=== PATIENT | female | born 1995 | race Caucasian/White ===

== ENCOUNTER → 2020-01-17 13:36 | Outpatient (BNVA) | payer MEDICAID, SELFPAY | PROVIDERS: Visit Provider Obstetrics & Gynecology | DX: Z76.89 Persons encountering health services in other specified circumstances (principal) ==

== ENCOUNTER 2020-02-09 09:57 | Outpatient (REF) | payer MEDICAID, SELFPAY ==
[2020-02-09 13:53] LABS: Hematocrit 29.5 % (37-47); Hemoglobin 9.1 g/dl (12.0-16.0); Mean Corpuscular HGB Conc 30.8 g/dl (31.0-35.0); Mean Corpuscular Hemoglobin 24.5 pg (27.0-33.0); Mean Corpuscular Volume 79.3 fL (80-98); Mean Platelet Volume 9.5 fL (9.4-12.3); Platelet Count 330 X10*3/uL (160-400); Red Blood Count 3.72 X10*6/uL (4.20-5.50); Red Cell Distribution Width 14.7 % (11.0-16.0); White Blood Count 8.5 X10*3/uL (4.8-10.8)
[2020-02-09 14:15] LABS: Glucose 1 Hour PP 50gm Dose 94 mg/dL (60-140)
[2020-02-09 14:48] LABS: Syphilis Screen Nonreactive (Nonreactive)
[2020-02-12 08:40] LABS: HIV AB/AG Nonreactive (Nonreactive); HIV Num 1 0.11 S/CO (0.00-0.99)
== END 2020-02-09 09:58 | disposition home or self-care (01) ==
LOC: HO.LAB 09:57
PROVIDERS: Visit Provider Advanced Practice Midwife
DX: O99.013 Anemia complicating pregnancy, third trimester (principal); O36.63X0 Maternal care for excessive fetal growth, third trimester, not applicable or unspecified; O99.213 Obesity complicating pregnancy, third trimester; O34.219 Maternal care for unspecified type scar from previous cesarean delivery; O28.3 Abnormal ultrasonic finding on antenatal screening of mother
CPT/HCPCS: 36415; 82951; 85027; 86780; 87086; 87389; 90686; 90715

== ENCOUNTER → 2020-02-20 13:35 | Outpatient (BNVA) | payer MEDICAID, SELFPAY | PROVIDERS: Visit Provider Obstetrics & Gynecology | DX: Z76.89 Persons encountering health services in other specified circumstances (principal) ==

== ENCOUNTER → 2020-03-05 14:28 | Outpatient (BNVA) | payer MEDICAID, SELFPAY | PROVIDERS: Visit Provider Advanced Practice Midwife | DX: Z76.89 Persons encountering health services in other specified circumstances (principal) ==

== ENCOUNTER 2020-03-11 14:51 | Outpatient (REF) | payer MEDICAID, SELFPAY | END 2020-03-11 14:52 | disposition home or self-care (01) | LOC: HO.LAB 14:51 | PROVIDERS: Visit Provider Internal Medicine | DX: Z20.828 Contact with and (suspected) exposure to other viral communicable diseases (principal) | CPT/HCPCS: C9803; U0003 ==

== ENCOUNTER 2020-03-15 12:33 | Outpatient (REF) | payer MEDICAID, SELFPAY ==
--- NOTE | 2020-03-15 12:42 | US_ITS ---
EXAMINATION: OBSTETRICAL ULTRASOUND, Follow up HISTORY: 24-year-old at the 34.6 weeks of gestation High BMI Increased nuchal translucency first trimester Size date discrepancy COMPARISON: 11/24/2019 TECHNIQUE: Real time transabdominal imaging with color and M-mode Doppler. PRESENTATION: Vertex PLACENTA LOCATION: Posterior without previa AMNIOTIC FLUID: Normal MEASUREMENTS: 1. Biparietal Diameter: 8.8 cm; 35.4 wks 2. Head Circumference: 32.2 cm; 36.3 wks 3. Abdominal Circumference: 30.9 cm; 34.6 wks 4. Femur Length: 6.3 cm; 32.6 wks 5. Heart Rate: 146 beats per minute WEIGHT: EFW: 2444 grams (5 lbs 6 oz) -- 36 %. BIOPHYSICAL PROFILE: Motion: 2 Tone: 2 Breathin Amniotic Fluid: 2 Total score: 8/8 GESTATIONAL AGE: 1. Established GA: 34.6 wks 2. GA from A: 35.0 wks ESTIMATED DATE OF DELIVERY: 1. Established ASA: 04/20/2020 2. ASA from AUA: 04/19/2020 US/US OB follow up IMPRESSION: 1. A single active fetus is in vertex presentation 2. Size equals dates 3. Reassuring biophysical profile I reviewed today's findings and gave her reassurance. The NT was 4 mm at the 12.5 weeks. She had low risk N IPT and normal echo. She reports having had the normal 1 hour GLT. No further ultrasound has been scheduled today. Thank you very much for this referral. Visiting time 25 minutes. Majority of this visit was spent reviewing and coordinating her care.
== END 2020-03-15 12:34 | disposition home or self-care (01) ==
LOC: HO.US 12:33
PROVIDERS: Visit Provider Obstetrics & Gynecology
DX: O28.3 Abnormal ultrasonic finding on antenatal screening of mother (principal)
CPT/HCPCS: 76816

== ENCOUNTER → 2020-03-19 13:02 | Outpatient (BNVA) | payer MEDICAID, SELFPAY | PROVIDERS: Visit Provider Advanced Practice Midwife | DX: O28.3 Abnormal ultrasonic finding on antenatal screening of mother (principal) | CPT/HCPCS: 81003 ==

== ENCOUNTER 2020-03-26 14:06 | Outpatient (REF) | payer MEDICAID, SELFPAY ==
[2020-03-29 04:47] LABS: C. trachomatis RNA TMA NOT DETECTED (NOT DETECTED); N. gonorrhoeae RNA TMA NOT DETECTED (NOT DETECTED)
== END 2020-03-26 14:07 | disposition home or self-care (01) ==
LOC: HO.LAB 14:06
PROVIDERS: Visit Provider Advanced Practice Midwife
DX: Z34.83 Encounter for supervision of other normal pregnancy, third trimester (principal); R06.02 Shortness of breath
CPT/HCPCS: 81003; 87081; 87491; 87591; 99212

== ENCOUNTER → 2020-04-03 13:13 | Outpatient (BNVA) | payer MEDICAID, SELFPAY | PROVIDERS: Visit Provider Advanced Practice Midwife | DX: Z34.83 Encounter for supervision of other normal pregnancy, third trimester (principal) | CPT/HCPCS: 81003; 99212 ==

== ENCOUNTER → 2020-04-10 15:39 | Outpatient (BNVA) | payer MEDICAID, SELFPAY | PROVIDERS: Visit Provider Advanced Practice Midwife | DX: Z34.83 Encounter for supervision of other normal pregnancy, third trimester (principal) | CPT/HCPCS: 81003; 99212 ==

== ENCOUNTER → 2020-04-29 14:14 | Outpatient (BNVA) | payer MEDICAID, SELFPAY | PROVIDERS: Visit Provider Advanced Practice Midwife | DX: Z39.2 Encounter for routine postpartum follow-up (principal) | CPT/HCPCS: 99212 ==

== ENCOUNTER → 2021-05-08 10:41 | Outpatient (BNVA) | payer MEDICAID, SELFPAY | PROVIDERS: Visit Provider Advanced Practice Midwife | DX: Z32.01 Encounter for pregnancy test, result positive (principal); O99.210 Obesity complicating pregnancy, unspecified trimester; E66.9 Obesity, unspecified; O34.219 Maternal care for unspecified type scar from previous cesarean delivery | CPT/HCPCS: 81025; 99212 ==

== ENCOUNTER 2021-05-23 11:33 | Outpatient (REF) | payer MEDICAID, SELFPAY ==
--- NOTE | ~2021-05-23 | US_ITS ---
EXAMINATION: OBSTETRICAL ULTRASOUND, FIRST TRIMESTER HISTORY: 25-year-old with uncertain LMP COMPARISON: None TECHNIQUE: Real time transabdominal imaging with color and M-mode Doppler. FINDINGS: A single, live IUP CRL of 23.4 mm c/w 9.1wks is noted. Heart Rate: 169 beats per minute. Both maternal ovaries are seen and appear normal. GESTATIONAL AGE: 1. GA from LMP: 9.4 wks 2. GA from AUA: 9.1 wks ESTIMATED DATE OF DELIVERY: 1. ASA from LMP: 12/22/2021 2. ASA from AUA: 12/25/2021 US/US OB <= 14 weeks fetus IMPRESSION: 1. A single live IUP 2. Size equals dates 3. Normal ovaries This note was generated with a voice recognition program. Please excuse any errors which may have been overlooked during my review of this note. Sometimes these errors may affect the content or meaning of a given sentence.
== END 2021-05-23 11:34 | disposition home or self-care (01) ==
LOC: HO.US 11:33
PROVIDERS: Visit Provider Advanced Practice Midwife
DX: O99.211 Obesity complicating pregnancy, first trimester (principal); E66.9 Obesity, unspecified; O34.219 Maternal care for unspecified type scar from previous cesarean delivery; Z3A.09 9 weeks gestation of pregnancy
CPT/HCPCS: 76801

== ENCOUNTER 2021-06-05 13:56 | Outpatient (REF) | payer MEDICAID, SELFPAY ==
[2021-06-05 16:33] LABS: Hematocrit 33.2 % (37.0-47.0); Hemoglobin 10.2 g/dl (12.0-16.0); Mean Corpuscular HGB Conc 30.7 g/dl (31.0-35.0); Mean Corpuscular Hemoglobin 23.8 pg (27.0-33.0); Mean Corpuscular Volume 77.4 fL (80.0-98.0); Mean Platelet Volume 9.6 fL (9.4-12.3); Platelet Count 409 X10*3/uL (160-400); Red Blood Count 4.29 X10*6/uL (4.20-5.50); Red Cell Distribution Width 17.9 % (11.0-16.0)
[2021-06-05 16:56] LABS: Amphetamine Screen Urine Not Detected (Not Detect); Barbiturates, Urine Not Detected (Not Detect); Benzodiazepines Screen Urine Not Detected (Not Detect); Cannabinoid Screen Urine Not Detected (Not Detect); Cocaine Screen Urine Not Detected (Not Detect); Fentanyl, urine Not Detected (Not Detect); Opiate Screen Urine Not Detected (Not Detect); Phencyclidine Screen Urine Not Detected (Not Detect)
[2021-06-06 07:46] LABS: ~HepC Num1 0.16 S/CO (0.00-0.79); ~Hepatitis C Antibody Nonreactive (Nonreactive)
[2021-06-06 07:53] LABS: HBsAGNum1 0.22 S/CO (0.00-0.99); HIV AB/AG Nonreactive (Nonreactive); HIV Num 1 0.04 S/CO (0.00-0.99); Hepatitis B Surface Antigen Negative (Negative)
[2021-06-06 08:45] LABS: Syphilis Screen Nonreactive (Nonreactive)
[2021-06-06 19:16] LABS: Rubella IgG Antibody 1.41 Index
== END 2021-06-05 13:57 | disposition home or self-care (01) ==
LOC: HO.LAB 13:56
PROVIDERS: PCP Nurse Practitioner Family; Visit Provider Advanced Practice Midwife
DX: Z34.91 Encounter for supervision of normal pregnancy, unspecified, first trimester (principal); Z3A.11 11 weeks gestation of pregnancy
CPT/HCPCS: 80307; 85027; 86762; 86780; 86787; 86803; 86850; 86900; 86901; 87086; 87340; 87389; 99212

== ENCOUNTER 2021-06-11 09:28 | Outpatient (REF) | payer MEDICAID, SELFPAY ==
[2021-06-11 10:36] LABS: Glucose 1 Hour PP 50gm Dose 86 mg/dL (60-140)
[2021-06-11 16:34] LABS: CT PCR NOT DETECTED (Not Detect.); NG PCR NOT DETECTED (Not Detect.)
[2021-06-12 11:04] LABS: BV Int Neg Control Negative (Negative); BV Int Pos Control Positive (Positive)
== END 2021-06-11 09:29 | disposition home or self-care (01) ==
LOC: HO.LAB 09:28
PROVIDERS: Visit Provider Advanced Practice Midwife
DX: O99.211 Obesity complicating pregnancy, first trimester (principal); E66.9 Obesity, unspecified; O34.211 Maternal care for low transverse scar from previous cesarean delivery; Z3A.11 11 weeks gestation of pregnancy
CPT/HCPCS: 36415; 87480; 87491; 87510; 87591; 87660; 99212

== ENCOUNTER 2021-06-20 12:22 | Outpatient (REF) | payer MEDICAID, SELFPAY ==
--- NOTE | ~2021-06-20 | US_ITS ---
EXAMINATION: OBSTETRICAL ULTRASOUND, FIRST TRIMESTER HISTORY: 25-year-old at 13.4 weeks of gestation High BMI NT screening COMPARISON: 05/23/2021 TECHNIQUE: Real time transabdominal imaging with color and M-mode Doppler. FINDINGS: A single, live IUP CRL of 65.9 mm c/w 13.0wks is noted. Heart Rate: 147 beats per minute. Normal yolk sac seen. NT was 1.6.mm. NB Present The embryo appears sonographically wnl for this GA. Both maternal ovaries are seen and appear normal. GESTATIONAL AGE: 1. Established GA: 13.4 wks 2. GA from AUA: 13.0 wks ESTIMATED DATE OF DELIVERY: 1. Established ASA: 12/22/2021 2. ASA from AUA: 12/26/2021 US/US OB 1T nuc measure IMPRESSION: 1. A single live IUP 2. Size equals dates 3. NT of 1.6 mm MFM Consultation: I reviewed the ultrasound findings along with significance of NT measurement. The NT of less than 3mm is generally reassuring. However, the sensitivity for T21 detection is only 60%. I reviewed the availability of serum aneuploidy screening which includes cell-free DNA and placental protein based tests. I discussed the sensitivity, false-positive rate, and other limitations associated with each test. I also reviewed the availability of invasive diagnostic tests that are associated small but definite risk of miscarriage. We also reviewed the differences between screening tests and diagnostic tests. After our discussion, she opted for the First trimester screening that is based on cell-free DNA or non-invasive testing (NIPT). The result will be faxed to your office in approximately 7 days. A follow up at 18 weeks for survey has been scheduled. Thank you very much for this referral. Total time 30 minutes. The time spent was devoted to counseling the patient about the disease and diagnosis, coordinating care including reviewing her records, pertinent lab data and studies, as well as discussing diagnostic evaluation and workup, plan therapeutic interventions and future disposition of care. This includes any additional research needed to obtain further information in formulating the plan of care of this patient. This note was generated with a voice recognition program. Please excuse any errors which may have been overlooked during my review of this note. Sometimes these errors may affect the content or meaning of a given sentence.
== END 2021-06-20 12:23 | disposition home or self-care (01) ==
LOC: HO.US 12:22
PROVIDERS: PCP Nurse Practitioner Family; Visit Provider Advanced Practice Midwife
DX: Z34.91 Encounter for supervision of normal pregnancy, unspecified, first trimester (principal)
CPT/HCPCS: 76813

== ENCOUNTER 2021-07-09 13:18 | Outpatient (REF) | payer MEDICAID, SELFPAY | END 2021-07-09 13:19 | disposition home or self-care (01) | LOC: HO.LAB 13:18 | PROVIDERS: PCP Nurse Practitioner Family; Visit Provider Advanced Practice Midwife | DX: O34.219 Maternal care for unspecified type scar from previous cesarean delivery (principal); O99.012 Anemia complicating pregnancy, second trimester; D64.9 Anemia, unspecified; O99.212 Obesity complicating pregnancy, second trimester; O09.892 Supervision of other high risk pregnancies, second trimester; Z3A.15 15 weeks gestation of pregnancy | CPT/HCPCS: 87086; 99212 ==

== ENCOUNTER 2021-07-25 16:07 | Emergency (ER) | payer MEDICAID, SELFPAY ==
[2021-07-25 16:40] VITALS: BP 124/59; PULSE 110; RESP 19; TEMP 36.5; BMI 34.7
[2021-07-25 18:33] VITALS: BP 115/72; PULSE 103; RESP 17; O2SAT 99
--- NOTE | 2021-07-25 18:42 | ED.DENTAL ---
HPI - Dental/Oral General Chief complaint: Dental/Oral Stated complaint: Dental pain Time Seen by Provider: 07/25/21 18:09 Source: patient Mode of arrival: ambulatory History of Present Illness HPI Narrative: 25-year-old female at 4 months gestation presenting to the ED complaining of upper and lower gum pain x3 days. Denies injury, trauma, bleeding, oral swelling, difficulty swallowing/inability to swallow, fever, chills. Denies related complaints including abdominal pain, hematuria, vaginal bleeding, vaginal discharge Onset (ago): day(s) Related Data Home Medications Medication Instructions Recorded Confirmed prenat.vits,luisa,[id number] 1 tab PO DAILY 01/17/20 07/09/21 Previous Rx's Medication Instructions Recorded doxylamine succinate 25 mg tablet 25 mg PO BEDTIME 30 Days #30 tab 06/05/21 (Unisom (doxylamine)) ferrous sulfate 325 mg (65 mg 325 mg PO BID #60 tab 06/05/21 iron) tablet pyridoxine (vitamin B6) 25 mg 25 mg PO tid PRN 30 Days #90 tab 06/05/21 tablet (Vitamin B-6) aspirin 81 mg tablet,delayed 162 mg PO DAILY #300 tab 06/11/21 release (Adult Aspirin Regimen) metronidazole 500 mg tablet 500 mg PO BID 7 Days #14 tab 07/04/21 Allergies Allergy/AdvReac Type Severity Reaction Status Date / Time No Known Allergies Allergy Verified 07/25/21 16:42 Review of Systems Review of Systems: Constitutional: No Fever, No Chills ENT/Mouth: No Ear Pain, No Nasal Congestion, No Sinus Pain, No Hoarseness, No sore throat, No Rhinorrhea, No Swallowing Difficulty, +gum pain Cardiovascular: No Chest Pain, No SOB Respiratory: No Cough, No Sputum, No Wheezing Gastrointestinal: No Nausea, No Vomiting, No Diarrhea, No Constipation, No Abdominal pain Genitourinary:No Dysuria, No Urinary Frequency, No Hematuria, No Flank Pain, no vaginal bleeding, no vaginal discharge Musculoskeletal: No joint pain, No Myalgias, No Joint Swelling Skin: No Skin Lesions, No rash Neuro: No Weakness, No Numbness, No Paresthesias Yes all other systems are reviewed and are negative PMFSH Past Medical History Attestation statement: The following information was validated with the patient. Surgical History History of Family History Family History Maternal Grandmother Cancer Social History Social History Household Members: Family and Children Housing: Apartment Are you a primary reservoir caretaker to a significant other at home: No Do you presently have visiting nurse or other home services: No Alcohol intake: never Patient Tobacco Use Status: Never used Tobacco Agree to transfusion: Yes Advance Directives: No Advance Directives Information Provided: No service: No Current occupational status: unemployed Current occupational exposures/hazards: No Sexual orientation: Straight/Heterosexual Gender identity: Female Cognitive needs: No Hearing needs: No Vision needs: No Physical Exam Vital Signs: Vital Signs: Last Vital Signs Temp 97.7 F 07/25/21 16:40 Pulse 103 H 07/25/21 18:33 Resp 17 07/25/21 18:33 BP 115/72 07/25/21 18:33 Pulse Ox 99 07/25/21 18:33 BMI result Body Mass Index 34.7 Const: General: cooperative, healthy appearing, no acute distress, alert, awake and Physically active Orientation/consciousness: patient oriented x3 Limitations: no limitations HEENT: Other: + mild tenderness to gums of the central and lateral incisors on the top and bottom. No erythema, no lesions, no swelling. Talking in complete sentences, in no respiratory distress. No dental tenderness, infection, fluctuance or induration Head: Yes normal to inspection and Yes atraumatic Ears: hearing grossly normal bilaterally General nose exam: Normal external nose present Face and sinus: Yes normal facial exam Mouth: Normal oral and palatal mucosa present, no drooling, no muffled voice and No restricted motion Teeth and gingiva: dentition normal Throat: Yes posterior oropharynx normal, Yes tonsils normal, Yes uvula midline, No peritonsillar mass, No uvula laterally displaced and No uvular edema Eyes: General: appearance normal, both eyes and all related structures EOM: EOMs intact bilaterally Neck: Neck: Yes normal visual inspection, Yes no meningeal signs and Yes supple Resp: Effort & Inspection: normal respiratory effort, no respiratory distress and no stridor Auscultation: clear to auscultation bilaterally Cardio: Rate: regular rate Heart sounds: S1 normal heart sound present and S2 normal heart sound present Skin: Rashes: no rashes Wounds: no wounds Neuro: General: patient oriented x3, tone normal and no meningeal signs Gait exam (Neuro): Normal gait present Extrem: General: Yes normal to inspection MDM - Dental/Oral MDM Narrative Medical decision making narrative: 25-year-old female at 4 months gestation presenting to the ED complaining of upper and lower gum pain x3 days. On exam mildly tachycardic likely from pain, NAD/nontoxic appearing, no evidence of dental abscess/infection. Patient denies related complaints. Recommended Tylenol and dentistry follow-up Differential Diagnosis Differential diagnosis: Likely dental caries, toothache and aphthous ulcer Medical Records Attestation: I reviewed the patient's medical records. Lab Data Attestation: I reviewed the patient's lab results. Discharge Plan Discharge Clinical Impression: Gingivitis Patient Disposition: Home, Self-Care Instructions: Gingivitis (ED) Additional Instructions: Please follow-up with your dentist. Take Tylenol for pain. Practice warm saltwater soaks and eat cold things for pain relief If symptoms persist or worsen, area begins to look infected, is red, there swelling or drainage, you see any bumps or lesions please return to the ED Por favor, kavin un seguimiento con tanner dentista. Shelli Tylenol para el dolor. Practique ba?os de agua salada tibia y coma cosas fr?as para aliviar el dolor Si los s?ntomas persisten o empeoran, el ?saundra comienza a lucir infectada, est? enrojecida, hay hinchaz?n o drenaje, ve alg?n bulto o lesi?n, regrese al servicio de urgencias. Prescriptions: No Action ferrous sulfate 325 mg (65 mg iron) tablet 325 mg PO BID Qty: 60 3RF metronidazole 500 mg tablet 500 mg PO BID 7 Days Qty: 14 0RF prenat.vits,luisa,[id number] Tablet 1 tab PO DAILY 0RF pyridoxine (vitamin B6) [Vitamin B-6] 25 mg tablet 25 mg PO tid PRN (Reason: nausea) 30 Days Qty: 90 3RF Rx Instructions: may take every 6 - 8 hours for nausea Unisom (doxylamine) 25 mg tablet 25 mg PO BEDTIME 30 Days Qty: 30 3RF aspirin [Adult Aspirin Regimen] 81 mg tablet,delayed release (DR/EC) 162 mg PO DAILY Qty: 300 1RF Referrals: Waqar Israel [Dentist] - Red Alfonso DMD [Dentist] - Print Language: Citizen [place]
== END 2021-07-25 19:09 | disposition home or self-care (01) ==
PROVIDERS: Emergency Provider Internal Medicine
DX: O26.92 Pregnancy related conditions, unspecified, second trimester (principal); K08.89 Other specified disorders of teeth and supporting structures; Z3A.16 16 weeks gestation of pregnancy
CPT/HCPCS: 99282; 99284

== ENCOUNTER 2021-08-01 13:40 | Outpatient (REF) | payer MEDICAID, SELFPAY ==
--- NOTE | ~2021-08-01 | US_ITS ---
EXAMINATION: US OBSTETRICAL CLINICAL INFORMATION: 25-year-old at 19.4 weeks of gestation Screening for anomaly COMPARISON: 06/20/2021 TECHNIQUE: Real-time transabdominal ultrasound was performed using C1-5 megahertz transducer. FINDINGS: A single, active, fetus is seen in breech presentation. The placenta is anterior without previa, and the amniotic fluid volume is wnl. MEASUREMENTS: 1. Biparietal Diameter: 4.4 cm; 19.2 wks 2. Occipital Frontal Diameter: 5.3 cm 3. Head Circumference: 15.7 cm; 18.4 wks 4. Abdominal Circumference: 13.6 cm; 19.4 wks 5. Femur Length: 2.8 cm; 18.5 wks 6. Humerus Length: 2.9 cm; 19.2 wks 7. Tibia Length: 2.5 cm; 18.6 wks 8. Ulna Length: 2.54 cm; 19.2 wks 9. Lateral ventricle: 0.6 cm 10. Cerebellum: 1.95 cm; 20.0 wks 11. Cisterna Magna: 0.32 cm 12. Nuchal Fold: 4.43 mm 13. Heart Rate: 156 beats per minute Rt ovary: normal Lt ovary: normal Cervical length 4.5 cm on T/A. GESTATIONAL AGE: 1. Established GA: 19.4 wks 2. GA from [facility]: 19.0 wks ESTIMATED DATE OF DELIVERY: 1. Established ASA: 12/22/2021 2. ASA from [facility]: 12/26/2021 ANATOMY: The visualized anatomy includes but not limited to: 1. Cranium: Normal 2. Intracranial anatomy: cavum septum pellucidi, lateral ventricles, choroid plexus, cerebellum, posterior fossa, third and fourth ventricles. 3. face: orbits, lip/palate, profile, nasal bone 4. Heart: four-chamber view of the heart, ventricular septum, foramen ovale, pulmonary vein, left and right outflow tracts, three-vessel view, 3 vessel trachea view, aortic and ductal arches, situs.. 5. Diaphragm: Normal 6. Abdominal wall: Normal 7. Cord Insertion: Normal 8. Spine: Cervical, thoracic, lumbar, sacral. 9. Stomach: Normal size and shape 10. Right Kidney: Normal 11. Left Kidney: Normal 12. 3 vessel cord: Normal 13. Upper extremity: Open hands, fifth digit. 14. Lower extremity: Tibia, fibula, bilateral feet. 15. Bladder: Normal 16. Genitalia: Female, patient aware US/US OB /maternal detail IMPRESSION: 1. Single, living, intrauterine with appropriate biometry. 2. Normal survey DISCUSSION: I reviewed today's ultrasound findings. We discussed the limitations of ultrasound in diagnosing aneuploidy and other congenital abnormalities. I reviewed the differences between screening test and diagnostic test. Amniocentesis was discussed and declined. She was informed that the baseline incidence of congenital abnormalities is approximately 3-5%. Not all these conditions are diagnosable in utero. RECOMMENDATIONS: Follow-up when necessary Thank you for allowing me to participate in her care. Total time 20 minutes. The time spent was devoted to counseling the patient about the disease and diagnosis, coordinating care including reviewing her records, pertinent lab data and studies, as well as discussing diagnostic evaluation and workup, plan therapeutic interventions and future disposition of care. This includes any additional research needed to obtain further information in formulating the plan of care of this patient. This note was generated with a voice recognition program. Please excuse any errors which may have been overlooked during my review of this note. Sometimes these errors may affect the content or meaning of a given sentence.
== END 2021-08-01 13:41 | disposition home or self-care (01) ==
LOC: HO.US 13:40
PROVIDERS: Visit Provider Advanced Practice Midwife
DX: O99.212 Obesity complicating pregnancy, second trimester (principal); O34.219 Maternal care for unspecified type scar from previous cesarean delivery; Z3A.19 19 weeks gestation of pregnancy
CPT/HCPCS: 76811

== ENCOUNTER → 2021-08-13 14:25 | Outpatient (BNVA) | payer MEDICAID, SELFPAY | PROVIDERS: Visit Provider Advanced Practice Midwife | DX: O99.212 Obesity complicating pregnancy, second trimester (principal); E66.9 Obesity, unspecified; O99.891 Other specified diseases and conditions complicating pregnancy; M54.9 Dorsalgia, unspecified; O34.219 Maternal care for unspecified type scar from previous cesarean delivery; Z3A.21 21 weeks gestation of pregnancy | CPT/HCPCS: 81003; 99212 ==